=== PATIENT | female | born 1975 | race Caucasian/White ===

== ENCOUNTER 2016-05-23 13:00 | Emergency (ER) | payer BC ==
[~2016-05-23 13:00] MED LIST: ADVI200T PO; BACT800T5 PO; LEVA750T PO; OXYC1TAB16 PO; PERC5TAB6 PO; PRED10PA PO; PRED10TA PO; ROBA500T PO; TYLE325T5 PO
[2016-05-23] MEDS ORDERED: NORCO, ANEXSIA 5/325MG TABLET (HYDROcodone/ACETAMINOPHEN) As Ordered ONE (13:56)
--- NOTE | 2016-05-23 14:04 | EDDOCDS ---
Physician Documentation [facility] Name: Janet Anaya Age: 40 yrs Sex: Female : 1975 Arrival Date: 05/23/2016 Time: 13:00 Bed TR8 Private MD: Miriam Hudson E Disposition: 05/23/16 13:51 Discharged to Home/Self Care. Impression: Lumbago with sciatica. - Condition is Stable. - Discharge Instructions: Back Pain, Adult. - Prescriptions for Naprosyn 500 mg Oral Tablet - take 1 tablet by ORAL route 2 times per day take with food; 30 tablet. Hydrocodone- Acetaminophen 5-325 mg Oral Tablet - take 1 tablet by ORAL route every 6 hours As needed MDD: 4 tabs; 16 tablet. Cyclobenzaprine 10 mg Oral Tablet - take 1 tablet by ORAL route 3 times per day As needed; 15 tablet. - Work Release Form - 3 day, Medication Reconciliation form. - Follow up: Miriam Hudson; When: 2 - 3 days; Reason: Wound/Symptom Recheck, Recheck today's complaints, Worsening of conditions, Continuance of care. - Problem is an acute exacerbation. - Symptoms are unchanged. Historical: - Allergies: no known allergies; - Home Meds: 1. none - PMHx: none; - PSHx: I&D abscess; - Social history: Smoking status: Patient uses tobacco products, light tobacco smoker. No barriers to communication noted, The patient speaks fluent Kiswahili, Speaks appropriately for age. - Family history: Not pertinent. - : The pt / caregiver states he / she is not on anticoagulants. Home medication list is obtained from the patient. - Exposure Risk Screening:: None identified. 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 9 in. (175.26 cm) (R); Pain 7/10; 13:02 Body Mass Index 25.84 (79.38 kg, 175.26 cm) jrd MDM: 13:51 HYDROcodone-acetaminophen 5 mg-325 mg 2 tabs PO once ordered. cc10 14:02 [facility] Payment Agreement was scanned into [employer] and attached to record. jp5 14:02 Financial registration complete. jp5 Administered Medications: 14:00 Drug: HYDROcodone-acetaminophen 2 tabs [hydrocodone 5 mg-acetaminophen 325 mg tablet (2 ms18 tabs)] Route: PO; 14:00 Follow up: Response: Pt left department before re-evaluation is appropriate ms18 Signatures: Luis Quezada RN RN mlb1 Henry Napoles PA-C PAPa cc10 Mery Boyer RN RN ms18 Jacquie Fung jp5 The chart was reviewed and I authenticate all verbal orders and agree with the evaluation and treatment provided.Attachments: 14:02 [facility] Payment Agreement jp5 MTDD
--- NOTE | 2016-05-23 14:04 | EDDOCDS ---
Nurse's Notes [facility] Name: Janet Anaya Age: 40 yrs Sex: Female : 1975 Arrival Date: 05/23/2016 Time: 13:00 Bed TR8 Private MD: Miriam Hudson E Diagnosis: Lumbago with sciatica Presentation: 05/23 13:07 Presenting complaint: Patient states: Low back pain radiating to bilateral hips and mlb1 upper legs began last night no known injury. Acute neurological deficits are not present. Mechanism of Injury: No Mechanism of Injury. Adult Sepsis Screening: The patient does not have new or worsening altered mentation. Patient's respiratory rate is less than 22. Systolic blood pressure is greater than 100. Patient has a qSOFA score of 0- Negative Sepsis Screen. Suicide/Homicide risk assessment- the patient denies having any suicidal and/or homicidal ideations and does not present with any other emotional, behavioral or mental health complaints. Status: Patient is not a coffee maker servicer or dependent. Transition of care: patient was not received from another setting of care. 13:07 Acuity: JIMMY Level 4 mlb1 13:07 Method Of Arrival: Walkin/Carried/Asstd mlb1 Triage Assessment: 13:09 General: Appears in no apparent distress, Behavior is appropriate for age, cooperative. mlb1 Pain: Location: low back area Pain currently is 7 out of 10 on a pain scale. Pain radiates to left hip and right hip. HIV screening NA for this visit Offered previously. 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 none - PMHx: none; - PSHx: I&D abscess; - Social history: Smoking status: Patient uses tobacco products, light tobacco smoker. No barriers to communication noted, The patient speaks fluent Japanese, Speaks appropriately for age. - Family history: Not pertinent. - : The pt / caregiver states he / she is not on anticoagulants. Home medication list is obtained from the patient. - Exposure Risk Screening:: None identified. Screenin:00 Screening information is obtained from the patient. Fall risk: No risks identified. ms18 Assistance ADL's: requires no assistance with activities of daily living. Abuse/DV Screen: The patient / caregiver reports he/she is: not in a situation that causes fear, pain or injury. Nutritional screening: No deficits noted. Advance Directives: There is no living will. home support is adequate. Assessment: 14:00 General: Appears in no apparent distress, comfortable, Behavior is appropriate for age, ms18 cooperative. Pain: Location: right hip and left hip and low back area Pain currently is 7 out of 10 on a pain scale. Neurological: No deficits noted. Level of Consciousness is awake, alert, obeys commands, Oriented to person, place, time, Moves all extremities. Gait is steady, Speech is normal. Respiratory: No deficits noted. Derm: Skin is pink, warm & dry. Musculoskeletal: Range of motion intact in all extremities. Vital Signs: 13:02 BP 134 / 72 RA Sitting (auto/reg); Pulse 100; Resp 18; Temp 98.0(O); Pulse Ox 99% on jrd R/A; Weight 79.38 kg (R); Height 5 ft. 9 in. (175.26 cm) (R); Pain 7/10; 13:02 Body Mass Index 25.84 (79.38 kg, 175.26 cm) [facility] Vitals: 13:02 Log In Time: May 23, 2016 at 13:00. [facility] ED Course: 13:02 Patient visited by Brooks Padilla PCA. jrd 13:02 Miriam Hudson is Private Physician. jrd 13:02 Patient moved to Waiting jrd 13:03 Patient moved to Pre RCE jrd 13:07 Patient visited by Luis Quezada, RN. mlb1 13:08 Triage Initiated mlb1 13:09 Patient visited by Lusi Quezada, RN. mlb1 13:28 Patient moved to Triage 2 ar3 13:34 [facility] Napoles [facility] cc10 13:34 Tyrone Drew MD is Attending Physician. cc10 13:45 Patient visited by Henry Napoles PA-C. cc10 13:50 Patient visited by Henry Napoles PA-C. cc10 13:50 Miriam Hudson is Referral Physician. cc10 14:00 Patient moved to TR8 ms18 14:00 The patient / caregiver is instructed regarding the plan of care and ED course. Patient ms18 has correct armband on for positive identification. Property sent home with patient. :Personal belongings accompany Pt. 14:00 No IV's were initiated during this patient's visit. ms18 14:02 [facility] Payment Agreement was scanned into [employer] and attached to record. jp5 14:02 No procedures done that require assistance. ms18 Administered Medications: 14:00 Drug: HYDROcodone-acetaminophen 2 tabs [hydrocodone 5 mg-acetaminophen 325 mg tablet (2 ms18 tabs)] Route: PO; 14:00 Follow up: Response: Pt left department before re-evaluation is appropriate ms18 Order Results: There are currently no results for this order. Outcome: 13:51 Discharge ordered by Provider. cc10 14:00 Discharge Assessment: Patient awake, alert and oriented x 3. No cognitive and/or ms18 functional deficits noted. Patient verbalized understanding of disposition instructions. patient administered narcotics - yes. Pt provided with safe discharge. The following High Risk Discharge criteria are identified: None. Discharged to home ambulatory, with family. Condition: good Condition: stable Condition: improved. Discharge instructions given to patient, Instructed on discharge instructions, follow up and referral plans. medication usage, no driving heavy equipment, Demonstrated understanding of instructions, medications, Pt was receptive of discharge instructions/ teaching. Prescriptions given X 3. No special radiology studies were completed. 14:02 Patient left the ED. ms18 Signatures: Luis Quezada, RN RN mlb1 Yenny Dobson, GRAPHIC DESIGN TEACHER GRAPHIC DESIGN TEACHER ar3 Henry Napoles, PA-C PAZeinaC cc10 Mery Boyer RN RN ms18 Brooks Padilla, GRAPHIC DESIGN TEACHER GRAPHIC DESIGN TEACHER jrd Jacquie Fung jp5 MTDD
--- NOTE | 2016-05-25 15:03 | EDDOCDS ---
Nurse's Notes [facility] Name: Janet Anaya Age: 40 yrs Sex: Female : 1975 Arrival Date: 05/23/2016 Time: 13:00 Bed TR8 Private MD: Miriam Hudson E Diagnosis: Lumbago with sciatica Presentation: 05/23 13:07 Presenting complaint: Patient states: Low back pain radiating to bilateral hips and mlb1 upper legs began last night no known injury. Acute neurological deficits are not present. Mechanism of Injury: No Mechanism of Injury. Adult Sepsis Screening: The patient does not have new or worsening altered mentation. Patient's respiratory rate is less than 22. Systolic blood pressure is greater than 100. Patient has a qSOFA score of 0- Negative Sepsis Screen. Suicide/Homicide risk assessment- the patient denies having any suicidal and/or homicidal ideations and does not present with any other emotional, behavioral or mental health complaints. Status: Patient is not a director of housing and energy services or dependent. Transition of care: patient was not received from another setting of care. 13:07 Acuity: JIMMY Level 4 mlb1 13:07 Method Of Arrival: Walkin/Carried/Asstd mlb1 Triage Assessment: 13:09 General: Appears in no apparent distress, Behavior is appropriate for age, cooperative. mlb1 Pain: Location: low back area Pain currently is 7 out of 10 on a pain scale. Pain radiates to left hip and right hip. HIV screening NA for this visit Offered previously. 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 none - PMHx: none; - PSHx: I&D abscess; - Social history: Smoking status: Patient uses tobacco products, light tobacco smoker. No barriers to communication noted, The patient speaks fluent Icelandic, Speaks appropriately for age. - Family history: Not pertinent. - : The pt / caregiver states he / she is not on anticoagulants. Home medication list is obtained from the patient. - Exposure Risk Screening:: None identified. Screenin:00 Screening information is obtained from the patient. Fall risk: No risks identified. ms18 Assistance ADL's: requires no assistance with activities of daily living. Abuse/DV Screen: The patient / caregiver reports he/she is: not in a situation that causes fear, pain or injury. Nutritional screening: No deficits noted. Advance Directives: There is no living will. home support is adequate. Assessment: 14:00 General: Appears in no apparent distress, comfortable, Behavior is appropriate for age, ms18 cooperative. Pain: Location: right hip and left hip and low back area Pain currently is 7 out of 10 on a pain scale. Neurological: No deficits noted. Level of Consciousness is awake, alert, obeys commands, Oriented to person, place, time, Moves all extremities. Gait is steady, Speech is normal. Respiratory: No deficits noted. Derm: Skin is pink, warm & dry. Musculoskeletal: Range of motion intact in all extremities. Vital Signs: 13:02 BP 134 / 72 RA Sitting (auto/reg); Pulse 100; Resp 18; Temp 98.0(O); Pulse Ox 99% on jrd R/A; Weight 79.38 kg (R); Height 5 ft. 9 in. (175.26 cm) (R); Pain 7/10; 13:02 Body Mass Index 25.84 (79.38 kg, 175.26 cm) [facility] Vitals: 13:02 Log In Time: May 23, 2016 at 13:00. [facility] ED Course: 13:02 Patient visited by Brooks Padilla PCA. jrd 13:02 Miriam Hudson is Private Physician. jrd 13:02 Patient moved to Waiting jrd 13:03 Patient moved to Pre RCE jrd 13:07 Patient visited by Luis Quezada, RN. mlb1 13:08 Triage Initiated mlb1 13:09 Patient visited by Luis Quezada, RN. mlb1 13:28 Patient moved to Triage 2 ar3 13:34 [facility] cc[facility] 13:34 Tyrone Drew MD is Attending Physician. cc10 13:45 Patient visited by Henry Napoles PA-C. cc10 13:50 Patient visited by Henry Napoles PA-C. cc10 13:50 Miriam Hudson is Referral Physician. cc10 14:00 Patient moved to TR8 ms18 14:00 The patient / caregiver is instructed regarding the plan of care and ED course. Patient ms18 has correct armband on for positive identification. Property sent home with patient. :Personal belongings accompany Pt. 14:00 No IV's were initiated during this patient's visit. ms18 14:02 [facility] Payment Agreement was scanned into [employer] and attached to record. jp5 14:02 No procedures done that require assistance. ms18 05/24 09:25 T-Sheet-- Draft Copy was scanned into [employer] and attached to record. gb Administered Medications: 05/23 14:00 Drug: HYDROcodone-acetaminophen 2 tabs [hydrocodone 5 mg-acetaminophen 325 mg tablet (2 ms18 tabs)] Route: PO; 14:00 Follow up: Response: Pt left department before re-evaluation is appropriate ms18 Order Results: There are currently no results for this order. Outcome: 13:51 Discharge ordered by Provider. cc10 14:00 Discharge Assessment: Patient awake, alert and oriented x 3. No cognitive and/or ms18 functional deficits noted. Patient verbalized understanding of disposition instructions. patient administered narcotics - yes. Pt provided with safe discharge. The following High Risk Discharge criteria are identified: None. Discharged to home ambulatory, with family. Condition: good Condition: stable Condition: improved. Discharge instructions given to patient, Instructed on discharge instructions, follow up and referral plans. medication usage, no driving heavy equipment, Demonstrated understanding of instructions, medications, Pt was receptive of discharge instructions/ teaching. Prescriptions given X 3. No special radiology studies were completed. 14:02 Patient left the ED. ms18 Signatures: Simona Bynum, Reg Reg gb Luis Quezada RN RN mlb1 Yenny Dobson, GAMING INVESTIGATOR GAMING INVESTIGATOR ar3 Henry Napoles, PA-C PA-C cc10 Mery Boyer,BETTY RN ms18 Brooks Padilla, GAMING INVESTIGATOR GAMING INVESTIGATOR d Jacquie Fung jp5 Chart Complete MTDD
--- NOTE | 2016-05-25 15:03 | EDDOCDS ---
Physician Documentation [facility] Name: Janet Aanya Age: 40 yrs Sex: Female : 1975 Arrival Date: 05/23/2016 Time: 13:00 Bed TR8 Private MD: Miriam Hudson E Disposition: 05/23/16 13:51 Discharged to Home/Self Care. Impression: Lumbago with sciatica. - Condition is Stable. - Discharge Instructions: Back Pain, Adult. - Prescriptions for Naprosyn 500 mg Oral Tablet - take 1 tablet by ORAL route 2 times per day take with food; 30 tablet. Hydrocodone- Acetaminophen 5-325 mg Oral Tablet - take 1 tablet by ORAL route every 6 hours As needed MDD: 4 tabs; 16 tablet. Cyclobenzaprine 10 mg Oral Tablet - take 1 tablet by ORAL route 3 times per day As needed; 15 tablet. - Work Release Form - 3 day, Medication Reconciliation form. - Follow up: Miriam Hudson; When: 2 - 3 days; Reason: Wound/Symptom Recheck, Recheck today's complaints, Worsening of conditions, Continuance of care. - Problem is an acute exacerbation. - Symptoms are unchanged. Historical: - Allergies: no known allergies; - Home Meds: 1. none - PMHx: none; - PSHx: I&D abscess; - Social history: Smoking status: Patient uses tobacco products, light tobacco smoker. No barriers to communication noted, The patient speaks fluent Kinyarwanda, Speaks appropriately for age. - Family history: Not pertinent. - : The pt / caregiver states he / she is not on anticoagulants. Home medication list is obtained from the patient. - Exposure Risk Screening:: None identified. 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 9 in. (175.26 cm) (R); Pain 7/10; 13:02 Body Mass Index 25.84 (79.38 kg, 175.26 cm) jrd MDM: 13:51 HYDROcodone-acetaminophen 5 mg-325 mg 2 tabs PO once ordered. cc10 14:02 [facility] Payment Agreement was scanned into [employer] and attached to record. jp5 14: Financial registration complete. jp5 05/24 09:25 T-Sheet-- Draft Copy was scanned into [employer] and attached to record. gb Administered Medications: 05/23 14:00 Drug: HYDROcodone-acetaminophen 2 tabs [hydrocodone 5 mg-acetaminophen 325 mg tablet (2 ms18 tabs)] Route: PO; 14:00 Follow up: Response: Pt left department before re-evaluation is appropriate ms18 Signatures: Simona Bynum, Reg Reg gb Luis Quezada RN RN mlb1 Henry Napoles PAZeinaC PA-C cc10 Mery Boyer RN RN ms18 Jacquie Fung jp5 The chart was reviewed and I authenticate all verbal orders and agree with the evaluation and treatment provided.Attachments: 14:02 [facility] Payment Agreement jp5 05/24 09:25 T-Sheet-- Draft Copy gb Chart Complete MTDD
--- NOTE | 2016-05-25 15:03 | EDDOCDS ---
Physician Documentation [facility] Name: Janet Anaya Age: 40 yrs Sex: Female : 1975 Arrival Date: 05/23/2016 Time: 13:00 Bed TR8 Private MD: Miriam Hudson E Disposition: 05/23/16 13:51 Discharged to Home/Self Care. Impression: Lumbago with sciatica. - Condition is Stable. - Discharge Instructions: Back Pain, Adult. - Prescriptions for Naprosyn 500 mg Oral Tablet - take 1 tablet by ORAL route 2 times per day take with food; 30 tablet. Hydrocodone- Acetaminophen 5-325 mg Oral Tablet - take 1 tablet by ORAL route every 6 hours As needed MDD: 4 tabs; 16 tablet. Cyclobenzaprine 10 mg Oral Tablet - take 1 tablet by ORAL route 3 times per day As needed; 15 tablet. - Work Release Form - 3 day, Medication Reconciliation form. - Follow up: Miriam Hudson; When: 2 - 3 days; Reason: Wound/Symptom Recheck, Recheck today's complaints, Worsening of conditions, Continuance of care. - Problem is an acute exacerbation. - Symptoms are unchanged. Historical: - Allergies: no known allergies; - Home Meds: 1. none - PMHx: none; - PSHx: I&D abscess; - Social history: Smoking status: Patient uses tobacco products, light tobacco smoker. No barriers to communication noted, The patient speaks fluent Kinyarwanda, Speaks appropriately for age. - Family history: Not pertinent. - : The pt / caregiver states he / she is not on anticoagulants. Home medication list is obtained from the patient. - Exposure Risk Screening:: None identified. 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 9 in. (175.26 cm) (R); Pain 7/10; 13:02 Body Mass Index 25.84 (79.38 kg, 175.26 cm) jrd MDM: 13:51 HYDROcodone-acetaminophen 5 mg-325 mg 2 tabs PO once ordered. cc10 14:02 [facility] Payment Agreement was scanned into [employer] and attached to record. jp5 14: Financial registration complete. jp5 05/24 09:25 T-Sheet-- Draft Copy was scanned into [employer] and attached to record. gb Administered Medications: 05/23 14:00 Drug: HYDROcodone-acetaminophen 2 tabs [hydrocodone 5 mg-acetaminophen 325 mg tablet (2 ms18 tabs)] Route: PO; 14:00 Follow up: Response: Pt left department before re-evaluation is appropriate ms18 Signatures: Simona Bynum, Reg Reg gb Luis Quezada RN RN mlb1 Henry Napoles PAZeinaC PA-C cc10 Mery Boyer RN RN ms18 Jacquie Fung jp5 The chart was reviewed and I authenticate all verbal orders and agree with the evaluation and treatment provided.Attachments: 14:02 [facility] Payment Agreement jp5 05/24 09:25 T-Sheet-- Draft Copy gb Chart Complete MTDD
== END 2016-05-23 14:02 | disposition home or self-care (01) ==
LOC: M ED 13:00
DX: G89.29 Other chronic pain (principal); M54.5 Low back pain; F17.210 Nicotine dependence, cigarettes, uncomplicated

== ENCOUNTER 2017-01-12 17:08 | Emergency (ER) | payer BC ==
[~2017-01-12] VITALS: Ht 172.7 cm; Wt 82.7 kg
[~2017-01-12 17:08] MED LIST changes: -LEVA750T PO; +LEVA750T7 PO; +PERC5TAB12 PO; -PERC5TAB6 PO
[2017-01-12] MEDS ORDERED: NS 1,000 ML IV ONE (18:15)
--- NOTE | 2017-01-12 18:29 | REP ---
Chest two views HISTORY: Cough Comparison: 06/30/2015 The lungs are clear. The heart is normal in size. The pulmonary vasculature is normal in appearance. The bony structure is intact. IMPRESSION: No acute disease. Signed by Rafael Davies MD 01/12/2017 06:21 P
[2017-01-12 18:55] LABS: BASO % 0.3 % (0.0-1.0); EOS # 0.1 10^3/uL (0.0-0.50); EOS % 1.1 % (0.0-3.0); IMMATURE GRANULOCYTE % 0.4 % (0-0); LYMPH # 1.9 10^3/uL (1.5-4.5); LYMPH % 15.4 % (24.0-44.0); MEAN CORPUSCULAR HEMOGLOBIN 27.3 pg (27.0-33.0); MEAN CORPUSCULAR HGB CONC 32.5 g/dl (32.0-36.5); MEAN CORPUSCULAR VOLUME 84.1 fl (80.0-96.0); MONO # 1.1 10^3/uL (0.0-0.8); MONO % 8.8 % (0.0-5.0); NEUTROPHILS # 9.2 10^3/uL (1.8-7.7); PLATELET COUNT, AUTOMATED 282 10^3/uL (150-450); RED CELL DISTRIBUTION WIDTH 15.8 % (11.5-14.5); WHITE BLOOD COUNT 12.4 10^3/uL (4.0-10.0)
[2017-01-12 19:37] LABS: ANION GAP 8 MEQ/L (8-16); BLOOD UREA NITROGEN 14 MG/DL (7-18); CALCIUM LEVEL 9.4 MG/DL (8.5-10.1); CARBON DIOXIDE LEVEL 29 MEQ/L (21-32); CHLORIDE LEVEL 101 MEQ/L (98-107); CREATININE FOR GFR 0.74 MG/DL (0.55-1.02); GLOMERULAR FILTRATION RATE > 60.0 (>58); GLUCOSE, FASTING 85 MG/DL (70-105); MAGNESIUM LEVEL 1.9 MG/DL (1.8-2.4); POTASSIUM SERUM 3.9 MEQ/L (3.5-5.1); SODIUM LEVEL 138 MEQ/L (136-145)
[2017-01-12 20:41] VITALS: BP 143/82
--- NOTE | 2017-01-13 07:08 | ECGEPIP ---
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
== END 2017-01-12 21:06 | disposition home or self-care (01) ==
LOC: M ED 17:08
DX: B34.9 Viral infection, unspecified (principal); R00.0 Tachycardia, unspecified; F17.210 Nicotine dependence, cigarettes, uncomplicated

== ENCOUNTER 2017-04-16 12:08 | Emergency (ER) | payer OTHER, BC ==
[2017-04-16] MEDS: LIDOCAINE 2% MDV 20 ML VIAL SC (13:00)
[2017-04-16] MEDS: ADACEL/BOOSTRIX VACCINE (DIPHTH/PERTUSS/ACELL/TETANUS)0.5ML SYR (90715) IM (13:41)
== END 2017-04-16 14:00 | disposition home or self-care (01) ==
LOC: M ED 12:08
DX: S61.216A Laceration without foreign body of right little finger without damage to nail, initial encounter (principal); W26.0XXA Contact with knife, initial encounter; Y92.59 Other trade areas as the place of occurrence of the external cause; Y93.G1 Activity, food preparation and clean up; Z87.891 Personal history of nicotine dependence
CPT/HCPCS: 90715

== ENCOUNTER 2017-04-21 15:22 | Emergency (ER) | payer OTHER ==
[2017-04-21] MEDS: methylPREDNISolone INJ 125 MG/2 ML VIAL (J2930) IM (19:27)
[2017-04-21] MEDS: diazePAM 5 MG TAB PO (19:27)
[2017-04-21] MEDS: KETOROLAC 60 MG/2 ML VIAL (J1885) IM (19:28)
== END 2017-04-21 20:14 | disposition home or self-care (01) ==
LOC: M ED 15:22
DX: S39.012A Strain of muscle, fascia and tendon of lower back, initial encounter (principal); M54.16 Radiculopathy, lumbar region; X50.9XXA Other and unspecified overexertion or strenuous movements or postures, initial encounter; Y92.511 Restaurant or cafe as the place of occurrence of the external cause; Y93.89 Activity, other specified; Y99.0 Civilian activity done for income or pay; Z87.891 Personal history of nicotine dependence; Z87.39 Personal history of other diseases of the musculoskeletal system and connective tissue
CPT/HCPCS: J1885

== ENCOUNTER 2019-05-13 12:36 | Emergency (ER) | payer OTHER ==
[~2019-05-13] VITALS: Ht 165.1 cm; Wt 78.5 kg
[~2019-05-13 12:36] MED LIST changes: +MOTR200T44 PO; +OXYC10TA3 PO; -OXYC1TAB16 PO; +PRED-351 PO; -PRED10TA PO; +PRED20TA PO; +VALI5TAB PO
[2019-05-13] MEDS ORDERED: LIDOCAINE 1% MDV 20ML VIAL SC ONE (13:15)
[2019-05-13] MEDS ORDERED: ADACEL/BOOSTRIX VACCINE (DIPHTH/PERTUSS/ACELL/TETANUS)0.5ML SYR (90715) IM ONE (13:15)
[2019-05-13] MEDS ORDERED: ACETAMINOPHEN 500 MG TAB PO ONE (13:15)
[2019-05-13] MEDS ORDERED: IBUPROFEN 800 MG TAB PO ONE (13:15)
--- NOTE | 2019-05-13 13:39 | REP ---
Clinical: Laceration. Technique: AP, lateral, bilateral oblique views of the left fourth digit. Findings: No acute fracture dislocation. No osseous involvement. No foreign body. Impression: No foreign body. Electronically Signed by Elieser Goode MD 05/13/2019 01:31 P
[2019-05-13] MEDS ORDERED: BACT400T PO (14:11)
[2019-05-13] MEDS ORDERED: NEOSPORIN TOP OINT 15GM TOP ONE (14:15)
[2019-05-13 14:16] VITALS: BP 120/58
== END 2019-05-13 14:16 | disposition home or self-care (01) ==
LOC: M ED 12:36
DX: S61.215A Laceration without foreign body of left ring finger without damage to nail, initial encounter (principal); W26.0XXA Contact with knife, initial encounter; Y92.89 Other specified places as the place of occurrence of the external cause; Y93.G1 Activity, food preparation and clean up; Y99.0 Civilian activity done for income or pay; F17.210 Nicotine dependence, cigarettes, uncomplicated; Z23 Encounter for immunization

== ENCOUNTER 2021-08-12 08:39 | Emergency (ER) | payer OTHER, SELFPAY ==
[~2021-08-12] VITALS: Ht 175.3 cm; Wt 80.3 kg
[~2021-08-12 08:39] MED LIST changes: +BACT400T PO
[2021-08-12 08:40] VITALS: BP 145/74
== END 2021-08-12 09:19 | disposition left against medical advice (07) ==
LOC: M ED 08:39
DX: Z53.21 Procedure and treatment not carried out due to patient leaving prior to being seen by health care provider (principal)

== ENCOUNTER 2022-02-16 08:29 | Emergency (ER) | payer OTHER, SELFPAY ==
[~2022-02-16] VITALS: Ht 175.3 cm; Wt 74.9 kg
[2022-02-16 10:45] LABS: BASO # 0.1 10^3/uL (0.0-0.2); BASO % 0.4 % (0.0-1.0); EOS % 0.1 % (0.0-3.0); HEMATOCRIT 37.5 % (36.0-47.0); HEMOGLOBIN 10.7 g/dl (12.0-15.5); LYMPH # 1.1 10^3/uL (1.5-5.0); LYMPH % 8.1 % (24.0-44.0); MEAN CORPUSCULAR HEMOGLOBIN 21.2 pg (27.0-33.0); MEAN CORPUSCULAR HGB CONC 28.5 g/dl (32.0-36.5); MEAN CORPUSCULAR VOLUME 74.3 fl (80.0-96.0); MONO # 1.3 10^3/uL (0.0-0.8); MONO % 9.6 % (2.0-8.0); NEUTROPHILS # 11.3 10^3/uL (1.5-8.5); NEUTROPHILS % 81.5 % (36.0-66.0); PLATELET COUNT, AUTOMATED 341 10^3/uL (150-450); RED BLOOD COUNT 5.05 10^6/uL (4.00-5.40); WHITE BLOOD COUNT 13.8 10^3/uL (4.0-10.0)
[2022-02-16] MEDS ORDERED: cefTRIAXone SOD 1 GM in D5W MINI-BAG PLUS 50 ML IV ONE (10:55)
[2022-02-16] MEDS ORDERED: ISOVUE-370 76% 100ML VIAL As Ordered ONE (11:02)
[2022-02-16 11:20] LABS: BLOOD UREA NITROGEN 13 MG/DL (9-23); CALCIUM LEVEL 9.1 MG/DL (8.5-10.1); CARBON DIOXIDE LEVEL 27 MMOL/L (20-31); CHLORIDE LEVEL 101 MMOL/L (98-107); CREATININE FOR GFR 0.76 MG/DL (0.55-1.30); GLOMERULAR FILTRATION RATE > 60.0 (>58); GLUCOSE, FASTING 100 MG/DL (60-100); SODIUM LEVEL 137 MMOL/L (136-145)
[2022-02-16 11:27] LABS: ERYTHROCYTE SEDIMENTATION RATE 50 mm/hr (0-20)
[2022-02-16] MEDS ORDERED: PERCOCET 5MG/325MG TAB PO ONE (12:30)
[2022-02-16] MEDS ORDERED: PERC5TAB12 PO (12:36)
[2022-02-16] MEDS ORDERED: CIPR-249 PO (12:36)
[2022-02-16] MEDS ORDERED: METR-265 PO (12:36)
[2022-02-16 12:43] VITALS: BP 138/63
== END 2022-02-16 13:08 | disposition home or self-care (01) ==
LOC: M ED 08:29
DX: K61.1 Rectal abscess (principal); I10 Essential (primary) hypertension; F17.200 Nicotine dependence, unspecified, uncomplicated; Z98.890 Other specified postprocedural states
CPT/HCPCS: 74177; 80048; 83605; 85025; 85652; 86140; 87040; 96365; 99283; J0696

== ENCOUNTER 2022-03-10 20:09 | Emergency (ER) | payer OTHER ==
[~2022-03-10] VITALS: Ht 167.6 cm; Wt 75.0 kg
[~2022-03-10 20:09] MED LIST changes: +CIPR-249 PO; +METR-265 PO
[2022-03-10] MEDS ORDERED: NS 1,000 ML IV ONE (22:20)
[2022-03-10] MEDS ORDERED: KETOROLAC 30 MG/ML 1ML VIAL IV ONE (22:20)
[2022-03-10 22:46] LABS: BASO # 0.1 10^3/uL (0.0-0.2); BASO % 0.4 % (0.0-1.0); EOS % 0.1 % (0.0-3.0); HEMOGLOBIN 10.2 g/dl (12.0-15.5); LYMPH # 1.5 10^3/uL (1.5-5.0); LYMPH % 12.8 % (24.0-44.0); MEAN CORPUSCULAR HEMOGLOBIN 21.5 pg (27.0-33.0); MEAN CORPUSCULAR HGB CONC 29.1 g/dl (32.0-36.5); MEAN CORPUSCULAR VOLUME 73.8 fl (80.0-96.0); MONO % 13.4 % (2.0-8.0); NEUTROPHILS # 8.6 10^3/uL (1.5-8.5); PLATELET COUNT, AUTOMATED 265 10^3/uL (150-450); RED BLOOD COUNT 4.74 10^6/uL (4.00-5.40); WHITE BLOOD COUNT 11.8 10^3/uL (4.0-10.0)
[2022-03-10] MEDS ORDERED: ONDANSETRON 4MG 2ML VIAL IV ONE (22:50)
[2022-03-10 23:16] LABS: MONO # 1.6 10^3/uL (0.0-0.8)
[2022-03-11] MEDS ORDERED: ACETAMINOPHEN 500 MG TAB PO ONE (01:00)
[2022-03-11] MEDS ORDERED: DOXY100C81 PO (01:06)
[2022-03-11] MEDS ORDERED: CEFD300C PO (01:06)
[2022-03-11 02:00] VITALS: BP 128/78
[2022-03-11] MEDS ORDERED: cefTRIAXone SOD 1 GM in D5W MINI-BAG PLUS 50 ML IV ONE (02:00)
[2022-03-12] MEDS ORDERED: DOXY100T2 PO (06:54)
[2022-03-12] MEDS ORDERED: CEFD300CAP PO (06:54)
== END 2022-03-11 02:08 | disposition home or self-care (01) ==
LOC: M ED 20:09
DX: J18.9 Pneumonia, unspecified organism (principal); I10 Essential (primary) hypertension; Z87.442 Personal history of urinary calculi
CPT/HCPCS: 74176; 80047; 81002; 84702; 85025; 96365; 96366; 96375; 99284; J0696; J1885; J2405

== ENCOUNTER 2022-03-11 23:48 | Inpatient (IN) | payer OTHER ==
[~2022-03-11] VITALS: Ht 175.3 cm; Wt 77.6 kg
[~2022-03-11 23:48] MED LIST changes: +CEFD300C PO; +DOXY100C81 PO
[2022-03-12] MEDS ORDERED: ACETAMINOPHEN TAB 650MG DOSE (2X325MG) PO ONE (00:05)
[2022-03-12 04:18] LABS: BASO % 0.1 % (0.0-1.0); HEMATOCRIT 33.9 % (36.0-47.0); HEMOGLOBIN 10.2 g/dl (12.0-15.5); LYMPH # 1.3 10^3/uL (1.5-5.0); LYMPH % 9.1 % (24.0-44.0); MEAN CORPUSCULAR HEMOGLOBIN 22.2 pg (27.0-33.0); MEAN CORPUSCULAR HGB CONC 30.1 g/dl (32.0-36.5); MEAN CORPUSCULAR VOLUME 73.7 fl (80.0-96.0); MONO % 11.2 % (2.0-8.0); NEUTROPHILS # 11.6 10^3/uL (1.5-8.5); NEUTROPHILS % 79.1 % (36.0-66.0); PLATELET COUNT, AUTOMATED 252 10^3/uL (150-450); WHITE BLOOD COUNT 14.7 10^3/uL (4.0-10.0)
[2022-03-12 04:37] LABS: LIPASE 26 U/L (12-53); MONO # 1.7 10^3/uL (0.0-0.8)
[2022-03-12 04:39] LABS: BILIRUBIN,DIRECT 0.2 MG/DL (<0.4)
[2022-03-12 04:40] LABS: ALKALINE PHOSPHATASE 101 U/L (46-116); ALT/SGPT 13 U/L (7.0-40); AST/SGOT 12 U/L (<34); BILIRUBIN,TOTAL 0.5 MG/DL (0.3-1.2); BLOOD UREA NITROGEN 13 MG/DL (9-23); CALCIUM LEVEL 8.8 MG/DL (8.5-10.1); CARBON DIOXIDE LEVEL 23 MMOL/L (20-31); CHLORIDE LEVEL 102 MMOL/L (98-107); CREATININE FOR GFR 0.68 MG/DL (0.55-1.30); GLOMERULAR FILTRATION RATE > 60.0 (>58); GLUCOSE, FASTING 139 MG/DL (60-100); POTASSIUM SERUM 3.7 MMOL/L (3.5-5.1); SODIUM LEVEL 137 MMOL/L (136-145); TOTAL PROTEIN 7.3 G/DL (5.7-8.2)
[2022-03-12] MEDS ORDERED: MORPHINE 4 MG/ML 1ML VIAL IV ONE (05:10)
[2022-03-12] MEDS ORDERED: ISOVUE-370 76% 100ML VIAL As Ordered ONE (05:15)
[2022-03-12] MEDS ORDERED: APIXABAN 5 MG TAB (ELIQUIS) PO ONE (06:05)
[2022-03-12 06:27] LABS: CK-MB VALUE MASS < 1.0 NG/ML (<3.6)
[2022-03-12 06:29] LABS: CPK CREATINE PHOSPHOKINASE 50 U/L (34-145)
[2022-03-12] MEDS ORDERED: CEFD300CAP PO (06:54)
[2022-03-12] MEDS ORDERED: DOXY100T2 PO (06:54)
[2022-03-12] MEDS ORDERED: HOME MED LIST COMPLETE! XX SCH (06:55)
[2022-03-12 06:56] LABS: INR 1.06
[2022-03-12 06:57] LABS: PARTIAL THROMBOPLASTIN TIME 22.8 SECONDS (24.8-34.2)
[2022-03-12] MEDS ORDERED: AZITHROMYCIN INJ 500 MG, VIAL MATE ADAPTER 1 EACH in NS 250 ML IV ONE (07:05)
[2022-03-12] MEDS ORDERED: cefTRIAXone SOD 1 GM in D5W MINI-BAG PLUS 50 ML IV ONE (07:05)
[2022-03-12] MEDS ORDERED: DOXYCYCLINE HYCLATE 100MG TABLET PO SCH (09:00)
[2022-03-12 09:21] LABS: TOTAL IRON BINDING CAPACITY 434 UG/DL (250-425)
[2022-03-12 09:23] LABS: IRON (FE) 5 UG/DL (50-170); PERCENT SATURATION 1.2 % (13.2-45.0); VITAMIN B12 LEVEL 850 PG/ML (211-911)
[2022-03-12 09:24] LABS: FOLATE 7.08 NG/ML (>5.4)
[2022-03-12 09:26] LABS: FERRITIN 28.8 NG/ML (7.3-270.7)
[2022-03-12 10:15] LABS: DRVV SCREEN 40.5 SEC
[2022-03-12 10:19] LABS: PTT LUPUS TYPE ANTICOAG SCREEN 1.1 (0-1.2)
[2022-03-12] MEDS: KCL 20MEQ in NS 1000ML 1,000 ML IV SCH ×2 (10:30→18:22)
[2022-03-12] MEDS: MORPHINE 2 MG/ML 1ML VIAL IV PRN ×3 (10:34→22:56)
[2022-03-12] MEDS: ACETAMINOPH W/CODEINE #3 TAB UD PO PRN ×2 (12:10→18:20)
[2022-03-12] MEDS: DOXYCYCLINE HYCLATE 100MG TABLET PO SCH (20:56)
[2022-03-12] MEDS: APIXABAN 5 MG TAB (ELIQUIS) PO SCH (20:56)
[2022-03-13] MEDS: ACETAMINOPHEN 500 MG TAB PO PRN ×2 (01:53→17:05)
[2022-03-13] MEDS: KCL 20MEQ in NS 1000ML 1,000 ML IV SCH ×3 (01:53→17:04)
[2022-03-13] MEDS: MORPHINE 2 MG/ML 1ML VIAL IV PRN ×3 (05:19→15:24)
[2022-03-13 07:27] LABS: HEMATOCRIT 30.9 % (36.0-47.0); HEMOGLOBIN 8.9 g/dl (12.0-15.5); MEAN CORPUSCULAR HEMOGLOBIN 21.5 pg (27.0-33.0); MEAN CORPUSCULAR HGB CONC 28.8 g/dl (32.0-36.5); MEAN CORPUSCULAR VOLUME 74.6 fl (80.0-96.0); PLATELET COUNT, AUTOMATED 218 10^3/uL (150-450); RED BLOOD COUNT 4.14 10^6/uL (4.00-5.40); WHITE BLOOD COUNT 11.2 10^3/uL (4.0-10.0)
[2022-03-13] MEDS: cefTRIAXone SOD 2 GM in D5W MINI-BAG PLUS 50 ML IV SCH (07:39)
[2022-03-13 07:58] LABS: BLOOD UREA NITROGEN 9 MG/DL (9-23); CALCIUM LEVEL 8.1 MG/DL (8.5-10.1); CARBON DIOXIDE LEVEL 25 MMOL/L (20-31); CHLORIDE LEVEL 107 MMOL/L (98-107); CREATININE FOR GFR 0.57 MG/DL (0.55-1.30); GLOMERULAR FILTRATION RATE > 60.0 (>58); GLUCOSE, FASTING 85 MG/DL (60-100); POTASSIUM SERUM 4.3 MMOL/L (3.5-5.1); SODIUM LEVEL 138 MMOL/L (136-145)
[2022-03-13] MEDS: DOXYCYCLINE HYCLATE 100MG TABLET PO SCH ×2 (09:06→19:57)
[2022-03-13] MEDS: APIXABAN 5 MG TAB (ELIQUIS) PO SCH ×2 (09:07→19:56)
[2022-03-13 16:09] VITALS: BP 139/75
[2022-03-13] MEDS: ACETAMINOPH W/CODEINE #3 TAB UD PO PRN (19:57)
[2022-03-13 20:00] VITALS: BP 119/70
[2022-03-14] VITALS: BP 131/64
[2022-03-14] MEDS: KCL 20MEQ in NS 1000ML 1,000 ML IV SCH ×2 (00:47→08:50)
[2022-03-14] MEDS: MORPHINE 2 MG/ML 1ML VIAL IV PRN (01:31)
[2022-03-14 05:32] LABS: HEMATOCRIT 30.1 % (36.0-47.0); HEMOGLOBIN 8.7 g/dl (12.0-15.5); MEAN CORPUSCULAR HEMOGLOBIN 21.5 pg (27.0-33.0); MEAN CORPUSCULAR HGB CONC 28.9 g/dl (32.0-36.5); MEAN CORPUSCULAR VOLUME 74.3 fl (80.0-96.0); PLATELET COUNT, AUTOMATED 233 10^3/uL (150-450); RED BLOOD COUNT 4.05 10^6/uL (4.00-5.40); WHITE BLOOD COUNT 10.6 10^3/uL (4.0-10.0)
[2022-03-14 05:49] LABS: BLOOD UREA NITROGEN 7 MG/DL (9-23); CALCIUM LEVEL 8.3 MG/DL (8.5-10.1); CARBON DIOXIDE LEVEL 21 MMOL/L (20-31); CHLORIDE LEVEL 107 MMOL/L (98-107); CREATININE FOR GFR 0.51 MG/DL (0.55-1.30); GLOMERULAR FILTRATION RATE > 60.0 (>58); GLUCOSE, FASTING 92 MG/DL (60-100); POTASSIUM SERUM 4.2 MMOL/L (3.5-5.1); SODIUM LEVEL 137 MMOL/L (136-145)
[2022-03-14] MEDS: cefTRIAXone SOD 2 GM in D5W MINI-BAG PLUS 50 ML IV SCH (06:21)
[2022-03-14] MEDS: ACETAMINOPHEN 500 MG TAB PO PRN (06:21)
[2022-03-14 07:58] VITALS: BP 132/75
[2022-03-14] MEDS: DOXYCYCLINE HYCLATE 100MG TABLET PO SCH (08:47)
[2022-03-14] MEDS: APIXABAN 5 MG TAB (ELIQUIS) PO SCH (08:47)
[2022-03-14] MEDS ORDERED: ELIQ5TAB PO (10:46)
== END 2022-03-14 12:56 | disposition home or self-care (01) | DRG 134 ==
LOC: M ED 23:48 → M ED INP 03-12 08:32 → ENRESERV 03-13 14:47 → M PCU 03-13 15:58
PROVIDERS: ADMIT Family Medicine; ATTEND Family Medicine
DX: I26.94 Multiple subsegmental thrombotic pulmonary emboli without acute cor pulmonale (principal); J15.9 Unspecified bacterial pneumonia; K61.1 Rectal abscess; F17.210 Nicotine dependence, cigarettes, uncomplicated; N64.53 Retraction of nipple; Z86.16 Personal history of COVID-19

== ENCOUNTER → 2022-03-16 | Outpatient (REF) | payer OTHER ==
[~2022-03-16] MED LIST changes: +CEFD300CAP PO; +DOXY100T2 PO; +ELIQ5TAB PO
[2022-03-17 13:15] LABS: PERCENT SATURATION 3.7 % (13.2-45.0)
[2022-03-17 13:18] LABS: FERRITIN 57.5 NG/ML (7.3-270.7)
== END ==
LOC: M LAB REF 12:10
PROVIDERS: ATTEND Internal Medicine
DX: D50.9 Iron deficiency anemia, unspecified (principal)

== ENCOUNTER → 2022-04-13 | Outpatient (CLI) | payer OTHER | LOC: M WHC 08:44 | PROVIDERS: ATTEND Internal Medicine | DX: Z12.31 Encounter for screening mammogram for malignant neoplasm of breast (principal) ==

== ENCOUNTER → 2022-06-03 | Outpatient (REF) | payer OTHER ==
[~2022-06-03] MED LIST changes: +FERR32TA PO; +MAGN400T33 PO; +POTA-151 PO
[2022-06-03 17:07] LABS: FERRITIN 14.4 NG/ML (7.3-270.7)
== END ==
LOC: M LAB REF 16:10
PROVIDERS: ATTEND Internal Medicine
DX: D64.9 Anemia, unspecified (principal)

== ENCOUNTER → 2022-06-07 | Outpatient (CLI) | payer OTHER | LOC: M LABSMTC 09:44 | PROVIDERS: ATTEND Anesthesiology | DX: Z01.812 Encounter for preprocedural laboratory examination (principal); Z11.52 Encounter for screening for COVID-19 ==

== ENCOUNTER 2022-06-11 06:09 | Day surgery (SDC) | payer OTHER ==
[~2022-06-11] VITALS: Ht 175.3 cm; Wt 80.6 kg
[2022-06-11] MEDS ORDERED: ceFAZolin SOD 2 GM in IV 1 EA IV ONE (06:30)
[2022-06-11] MEDS ORDERED: metroNIDAZOLE 500 MG in IV 1 EA IV ONE (06:30)
[2022-06-11] MEDS ORDERED: CelecoXIB 400 MG CAP PO ONE (06:30)
[2022-06-11] MEDS ORDERED: LIDOCAINE 2% 100MG/5ML SDV (FOR ANES.) As Ordered ONE (06:53)
[2022-06-11] MEDS ORDERED: propofoL 200 MG/20 ML VIAL As Ordered ONE (06:53)
[2022-06-11] MEDS ORDERED: SUGAMMADEX SODIUM 500 MG/5 ML VIAL (BRIDION) As Ordered ONE (06:53)
[2022-06-11] MEDS ORDERED: ONDANSETRON 4MG 2ML VIAL As Ordered ONE (06:53)
[2022-06-11] MEDS ORDERED: ROCURONIUM BROMIDE 50MG/5ML VIAL As Ordered ONE (06:53)
[2022-06-11] MEDS ORDERED: fentaNYL 100 MCG/2 ML INJECTION As Ordered ONE (07:06)
[2022-06-11] MEDS ORDERED: MIDAZOLAM INJ 2MG/2ML VIAL As Ordered ONE (07:06)
[2022-06-11] MEDS ORDERED: BUPIVACAINE LIPOSOME/PF 1.3% 20ML VIAL (13.3MG/ML)(EXPAREL) As Ordered ONE (07:19)
[2022-06-11] MEDS ORDERED: BUPIVACAINE HCL 0.25% 10ML VIAL As Ordered ONE (07:19)
[2022-06-11] MEDS ORDERED: LIDOCAINE W/EPINEPHRINE 1% 20ML VIAL As Ordered ONE (07:22)
[2022-06-11] MEDS ORDERED: ACETAMINOPHEN 1000MG 100ML IV BAG As Ordered ONE (08:10)
[2022-06-11] MEDS ORDERED: KETOROLAC 60MG 2ML VIAL As Ordered ONE (08:25)
[2022-06-11] MEDS ORDERED: LR 1,000 ML IV SCH ×2 (08:50)
[2022-06-11] MEDS ORDERED: EMLA CREAM 5GM TUBE (LIDOCAINE/PRILOCAINE) TOP PRN (08:50)
[2022-06-11] MEDS ORDERED: ONDANSETRON 4MG 2ML VIAL IV PRN (08:50)
[2022-06-11] MEDS ORDERED: LIDOCAINE 1% SDV 5ML VIAL SC PRN (08:50)
[2022-06-11] MEDS ORDERED: oxyCODONE 5MG TAB PO PRN (08:50)
[2022-06-11] MEDS ORDERED: fentaNYL 100 MCG/2 ML INJECTION IV PRN (08:50)
[2022-06-11] MEDS ORDERED: HYDROMORPHONE HCL 0.5 MG/ 0.5 ML SYRINGE IV PRN (08:50)
[2022-06-11 09:34] VITALS: BP 120/73
[2022-06-11] MEDS ORDERED: NORCO, ANEXSIA 5/325MG TABLET (HYDROcodone/ACETAMINOPHEN) PO PRN (09:45)
[2022-06-11] MEDS ORDERED: KETOROLAC 30 MG/ML 1ML VIAL IV SCH (15:00)
== END 2022-06-11 10:07 | disposition home or self-care (01) ==
LOC: M SDC 06:09
PROVIDERS: ATTEND Surgery
DX: K61.1 Rectal abscess (principal); R94.31 Abnormal electrocardiogram [ECG] [EKG]; D64.9 Anemia, unspecified; R51.9 Headache, unspecified; Z86.711 Personal history of pulmonary embolism; Z86.16 Personal history of COVID-19; F17.210 Nicotine dependence, cigarettes, uncomplicated; Z79.899 Other long term (current) drug therapy; Z79.01 Long term (current) use of anticoagulants
CPT/HCPCS: 46040; 81025; 88304; C9290; J0131; J0690; J1100; J1885; J2250; J2405; J3010; S0020

== ENCOUNTER 2022-12-25 19:19 | Emergency (ER) | payer OTHER ==
[~2022-12-25] VITALS: Ht 175.3 cm; Wt 83.4 kg
[~2022-12-25 19:19] MED LIST changes: -DOXY100C81 PO; +DOXY100C82 PO
[2022-12-25] MEDS ORDERED: METO1TAB87 (19:27)
[2022-12-25] MEDS ORDERED: ISOVUE-370 76% 100ML VIAL As Ordered ONE (21:25)
[2022-12-25] MEDS ORDERED: PERCOCET 5MG/325MG TAB PO ONE (21:40)
[2022-12-25 21:48] LABS: C REACTIVE PROTEIN QUANTITATIV 2.6 MG/DL (<1.0)
[2022-12-25 21:50] LABS: ALBUMIN 3.4 G/DL (3.2-5.2); BASO # 0.1 10^3/uL (0.0-0.2); BASO % 0.5 % (0.0-1.0); BILIRUBIN,DIRECT 0.1 MG/DL (<0.4); BILIRUBIN,TOTAL 0.4 MG/DL (0.3-1.2); EOS # 0.1 10^3/uL (0.0-0.5); EOS % 0.7 % (0.0-3.0); HEMATOCRIT 39.9 % (36.0-47.0); HEMOGLOBIN 13.2 g/dl (12.0-15.5); LYMPH # 1.6 10^3/uL (1.5-5.0); LYMPH % 14.3 % (24.0-44.0); MEAN CORPUSCULAR HEMOGLOBIN 30.3 pg (27.0-33.0); MEAN CORPUSCULAR HGB CONC 33.1 g/dl (32.0-36.5); MEAN CORPUSCULAR VOLUME 91.7 fl (80.0-96.0); MONO # 1.2 10^3/uL (0.0-0.8); MONO % 10.3 % (2.0-8.0); NEUTROPHILS # 8.4 10^3/uL (1.5-8.5); PLATELET COUNT, AUTOMATED 197 10^3/uL (150-450); RED BLOOD COUNT 4.35 10^6/uL (4.00-5.40); TOTAL PROTEIN 6.5 G/DL (5.7-8.2); WHITE BLOOD COUNT 11.3 10^3/uL (4.0-10.0)
[2022-12-25 22:10] VITALS: BP 115/67; TEMP 99; O2SAT 98
[2022-12-25 22:11] LABS: ERYTHROCYTE SEDIMENTATION RATE 34 mm/hr (0-20)
[2022-12-25] MEDS ORDERED: LIDOCAINE W/EPINEPHRINE 1% 20ML VIAL SC ONE (22:50)
[2022-12-25] MEDS ORDERED: AMOX875T2 PO (23:16)
[2022-12-25] MEDS ORDERED: TRAM50TA2 PO (23:16)
== END 2022-12-25 23:30 | disposition home or self-care (01) ==
LOC: M ED 19:19
DX: K61.1 Rectal abscess (principal); I10 Essential (primary) hypertension; F17.200 Nicotine dependence, unspecified, uncomplicated; Z86.718 Personal history of other venous thrombosis and embolism; Z79.01 Long term (current) use of anticoagulants; Z79.2 Long term (current) use of antibiotics; Z79.899 Other long term (current) drug therapy
CPT/HCPCS: 74177; 80047; 80076; 83605; 85025; 85652; 86140; 87070; 87077; 87186; 96372; 99283; Q9967

== ENCOUNTER → 2023-01-11 | Outpatient (REF) | payer OTHER ==
[~2023-01-11] MED LIST changes: +AMOX875T2 PO; +METO1TAB87 PO; +TRAM50TA2 PO
[2023-01-11 13:40] LABS: PERCENT SATURATION 23.9 % (13.2-45.0)
[2023-01-11 13:43] LABS: FERRITIN 38.2 NG/ML (7.3-270.7)
== END ==
LOC: M LAB REF 12:32
PROVIDERS: ATTEND Internal Medicine
DX: D50.9 Iron deficiency anemia, unspecified (principal)

== ENCOUNTER 2023-01-26 08:08 | Day surgery (SDC) | payer OTHER ==
[~2023-01-26] VITALS: Ht 175.3 cm; Wt 81.6 kg
[~2023-01-26 08:08] MED LIST changes: +LIDOCAINE 2% 100MG/5ML SDV (FOR ANES.) As Ordered ONE; +NS 1,000 ML IV ONE; +fentaNYL 100 MCG/2 ML INJECTION As Ordered ONE; +propofoL 200 MG/20 ML VIAL As Ordered ONE
[2023-01-26 10:07] VITALS: TEMP 97.4
[2023-01-26 10:27] VITALS: BP 174/102; O2SAT 99
== END 2023-01-26 10:39 | disposition home or self-care (01) ==
LOC: M OPP 08:08
PROVIDERS: ATTEND Surgery
DX: Z12.11 Encounter for screening for malignant neoplasm of colon (principal); Z12.12 Encounter for screening for malignant neoplasm of rectum; D50.9 Iron deficiency anemia, unspecified; Z79.01 Long term (current) use of anticoagulants; Z79.899 Other long term (current) drug therapy; Z86.711 Personal history of pulmonary embolism; Z80.0 Family history of malignant neoplasm of digestive organs
CPT/HCPCS: 43235; 45378; J3010

== ENCOUNTER → 2024-02-14 | Outpatient (REF) | payer OTHER ==
[~2024-02-14] MED LIST changes: -LIDOCAINE 2% 100MG/5ML SDV (FOR ANES.) As Ordered ONE; -NS 1,000 ML IV ONE; -fentaNYL 100 MCG/2 ML INJECTION As Ordered ONE; -propofoL 200 MG/20 ML VIAL As Ordered ONE
[2024-02-14 18:30] LABS: FERRITIN 40.6 NG/ML (7.3-270.7); PERCENT SATURATION 19.8 % (13.2-45.0)
== END ==
LOC: M LAB REF 17:38
PROVIDERS: ATTEND Internal Medicine
DX: D50.9 Iron deficiency anemia, unspecified (principal)

== ENCOUNTER 2024-02-24 19:30 | Emergency (ER) | payer OTHER ==
[~2024-02-24] VITALS: Ht 175.3 cm; Wt 84.7 kg
[2024-02-24 19:32] VITALS: BP 162/80; TEMP 98.6; O2SAT 98
[2024-02-24] MEDS ORDERED: AZIT-12 PO (20:08)
[2024-02-24] MEDS: AZITHROMYCIN 250MG TABLET PO ONE (20:18)
[2024-02-24] MEDS: BOOSTRIX VACCINE (TETANUS/DIPHTH/ACEL. PERTUSSIS) 0.5ML SYR IM ONE (20:19)
== END 2024-02-24 20:38 | disposition home or self-care (01) ==
LOC: M ED 19:30
DX: S50.811A Abrasion of right forearm, initial encounter (principal); W55.03XA Scratched by cat, initial encounter; Y92.9 Unspecified place or not applicable; Y93.9 Activity, unspecified; Y99.9 Unspecified external cause status; Z23 Encounter for immunization; Z79.01 Long term (current) use of anticoagulants; Z79.2 Long term (current) use of antibiotics

== ENCOUNTER 2024-08-11 08:03 | Emergency (ER) | payer OTHER ==
[~2024-08-11] VITALS: Ht 175.3 cm; Wt 83.9 kg
[~2024-08-11 08:03] MED LIST changes: +AZIT-12 PO; +DOXY-442 PO; -DOXY100C82 PO
[2024-08-11] MEDS ORDERED: IBUP200C25 PO (08:22)
[2024-08-11 10:34] LABS: KETONE, URINE AUTO RFX NEGATIVE (NEGATIVE); LEUKOCYTE ESTERASE UR AUTO RFX NEGATIVE (NEGATIVE); MUCUS, URINE RFX SMALL (NEGATIVE); NITRITE, URINE AUTO RFX NEGATIVE (NEGATIVE); RBC, URINE AUTO RFX 0 /HPF (0-3); SQUAM EPITHELIAL CELL UR AURFX 1 /HPF (0-6); WBC, URINE AUTO RFX 1 /HPF (0-3)
[2024-08-11 10:36] LABS: BASO % 0.5 % (0.0-1.0); EOS # 0.1 10^3/uL (0.0-0.5); EOS % 0.6 % (0.0-3.0); HEMOGLOBIN 13.5 g/dl (12.0-15.5); LYMPH # 1.7 10^3/uL (1.5-5.0); LYMPH % 19.4 % (24.0-44.0); MEAN CORPUSCULAR HEMOGLOBIN 28.8 pg (27.0-33.0); MEAN CORPUSCULAR HGB CONC 32.1 g/dl (32.0-36.5); MEAN CORPUSCULAR VOLUME 89.7 fl (80.0-96.0); NEUTROPHILS # 5.7 10^3/uL (1.5-8.5); NEUTROPHILS % 67.1 % (36.0-66.0); PLATELET COUNT, AUTOMATED 209 10^3/uL (150-450); RED BLOOD COUNT 4.68 10^6/uL (4.00-5.40); WHITE BLOOD COUNT 8.5 10^3/uL (4.0-10.0)
[2024-08-11] MEDS ORDERED: ISOVUE-370 76% 100ML VIAL As Ordered ONE (11:07)
[2024-08-11 12:49] VITALS: BP 140/70; TEMP 98.3; O2SAT 98
== END 2024-08-11 12:55 | disposition home or self-care (01) ==
LOC: M ED 08:03
DX: K52.89 Other specified noninfective gastroenteritis and colitis (principal); F17.210 Nicotine dependence, cigarettes, uncomplicated; F12.10 Cannabis abuse, uncomplicated; Z79.1 Long term (current) use of non-steroidal anti-inflammatories (NSAID); Z79.01 Long term (current) use of anticoagulants; Z79.2 Long term (current) use of antibiotics; Z79.899 Other long term (current) drug therapy
CPT/HCPCS: 36415; 74177; 80047; 81001; 85025; 99284; Q9967

== ENCOUNTER 2025-01-30 11:08 | Emergency (ER) | payer OTHER ==
[~2025-01-30] VITALS: Ht 175.3 cm; Wt 81.8 kg
[~2025-01-30 11:08] MED LIST changes: +IBUP200C25 PO
[2025-01-30 11:09] VITALS: BP 137/88; TEMP 97.6; O2SAT 97
[2025-01-30] MEDS ORDERED: CYCL-707 PO (11:26)
[2025-01-30] MEDS ORDERED: IBUP600T42 PO (11:26)
== END 2025-01-30 11:40 | disposition home or self-care (01) ==
LOC: M ED 11:08
DX: M54.30 Sciatica, unspecified side (principal); I10 Essential (primary) hypertension; F17.210 Nicotine dependence, cigarettes, uncomplicated; Z79.2 Long term (current) use of antibiotics; Z79.1 Long term (current) use of non-steroidal anti-inflammatories (NSAID); Z79.01 Long term (current) use of anticoagulants; Z79.899 Other long term (current) drug therapy

== ENCOUNTER 2025-02-01 23:15 | Emergency (ER) | payer OTHER ==
[~2025-02-01] VITALS: Ht 175.3 cm; Wt 77.8 kg
[~2025-02-01 23:15] MED LIST changes: +CYCL-707 PO; +IBUP600T42 PO
[2025-02-01 23:17] VITALS: BP 132/74; TEMP 97.8; O2SAT 100
== END 2025-02-02 01:15 | disposition left against medical advice (07) ==
LOC: M ED 23:15
DX: Z53.21 Procedure and treatment not carried out due to patient leaving prior to being seen by health care provider (principal)